=== PATIENT | female | born 1950 | race Caucasian/White ===

== ENCOUNTER 2019-04-28 22:44 | Emergency (ER) | payer MEDICARE, OTHER ==
[2019-04-28] MEDS ORDERED: EPINEPHrine SYR 0.1MG/ML* SYRINGE ONE (22:48)
[2019-04-28] MEDS ORDERED: Sodium Bicarbonate 8.4%* 50 ML SYRINGE ONE (22:48)
--- NOTE | 2019-04-28 23:08 | ED ---
Cardiac Resuscitation - HPI Summary HPI Summary: LIMITED DUE TO LEVEL 5 CAVEAT: UNATTAINABLE DUE TO EXTREMIS This patient is a 68 y/o female who arrives to [facility] transported by EMS from [place] for cardiac arrest. Patient arrives at 2243. Dr. Alba at bedside at 2243. This patient has a cardiac history of PEA and v-tach. She was driven [place] ED by her c/o of SOB and CP. In [place] ED, patient coded a few times. CPR was performed at [place] which resulted in bleeding out of the ET tube. Patient was transferred from [place] to here. According to the transfer crew, the patient was arrested 3 times and she was having PEA. She was treated by the crew with epinephrine 3 times. When the patient arrived to ED here she had no spontaneous pulse. Patient is intubated and has multiple IOs but only the IO in the right humerus is working. On arrival to [facility] patient was asystolic and had dilated fixed pupils. CPR was started at 2246. Patient had an arrhythmic PEA and was given epinephrine at 2247. At 2250, no pulse was felt. At 225, patient was given bicarbonate. At 2252, patient was pronounced and CPR was stopped. Patient did not receive any atropine by EMS or at [place]. - History of Current Complaint Stated Complaint: CARDIAC ARREST PER EMS Time Seen by Provider: 04/28/19 22:55 Hx Obtained From: EMS Arrest Witnessed: Yes Was AED Placed on Patient: No - Past Medical History Past Medical History: Unobtainable Due to Extremis - LIMITED DUE TO LEVEL 5 CAVEAT: UNATTAINABLE DUE TO EXTREMIS - Family History Family History: Unobtainable Due to Extremis - Social History Social History: Unobtainable Due to Extremis - Review of Systems Review of Systems: Unobtainable Due to Extremis - LIMITED DUE TO LEVEL 5 CAVEAT : UNATTAINABLE DUE TO EXTREMIS Physical Examination - Summary Physical Exam Summary: LIMITED DUE TO LEVEL 5 CAVEAT: UNATTAINABLE DUE TO EXTREMIS ET tube with bloody secretions in tube Bilateral breath sounds with ambu-bag Patient is pale and cold No evidence of trauma - Physical Examination Completion Of Physical Exam Limited Due To: Extremis Resuscitation Termination Time: 22:52 Resuscitation: Unsuccessful - ED Findings Circulation/Rhythm: Asystole, PEA Cardiac Resus. Course/Dx - Course Course Of Treatment: LIMITED DUE TO LEVEL 5 CAVEAT: UNATTAINABLE DUE TO EXTREMIS. This patient is a transfer from [place] with a cardiac history of PEA and v-tach. Patient arrives at [facility] with ET tube and multiple IOs. On arrival to [facility] patient was asystolic and had dilated fixed pupils. CPR was started at 2246. Patient had an arrhythmic PEA and was given epinephrine at 2247. At 2249, no pulse was felt. At 2250, patient was given bicarbonate. At 2251, patient was pronounced and CPR was stopped. Discussed patient case with biomedical repair technician Rachelle Ochoa who recommended the patient be [place] the [facility] [place] - Diagnoses Provider Diagnoses: Cardiac arrest - Provider Notifications Discussed Care Of Patient With: Rachelle Ochoa Time Discussed With Above Provider: 23:55 Instructed by Provider To: Other - Discussed patient case with biomedical repair technician Rachelle Ochoa who recommended the patient be [place] the [facility] [place]charge - Sign-Out/Discharge Documenting (check all that apply): Patient Departure - - Discharge Plan Condition: Referrals: No Primary Care Phys,NOPCP [Primary Care Provider] - - Attestation Statements Document Initiated by Scribe: Yes Documenting Scribe: Parish David Provider For Whom Scribe is Documenting (Include Credential): Ortega Alba MD Scribe Attestation: Parish Jaimes, scribed for Ortega Alba MD on 04/29/19 at 0004. Status of Scribe Document: Ready
[2019-04-28 23:12] VITALS: BP 0/0
== END 2019-04-29 02:03 | disposition expired ==
LOC: ED 22:44
DX: I46.9 Cardiac arrest, cause unspecified (principal)
CPT/HCPCS: 99284; J0171